=== PATIENT | female | born 1970 | race American Indian/Alaskan Native ===

== ENCOUNTER 2019-05-11 09:12 | Day surgery (SDC) | payer OTHER ==
[~2019-05-11 09:12] MED LIST: DIPRIVAN 10 MG/ML IV ONE; NACL 0.9% 1000 ML 1,000 ML IV SCH
--- NOTE | 2019-05-11 12:01 | Procedure Note ---
Date of procedure: 05/11/19 Pre-op diagnosis: H/O Colon Polyp/ F/H/O Colon Cancer (mother) Post-op diagnosis: other (No Colon Polyps at present/No diverticular Disease/Minor,Internal Hemorrhoid) Procedure: Colonoscopy Anesthesia: MAC Surgeon: SORIN JAVIER Estimated blood loss: none Pathology: none Condition: stable Disposition: same day (Resume home medication and follow up in 1 to 2 weeks ([phone]).)
--- NOTE | 2019-05-11 12:15 | Anesthesia Day of Surgery ---
Anesthesia Day of Surgery - Day of Surgery Patient Examined: Yes Patient H&P Reviewed: Yes Patient is NPO: Yes
--- NOTE | 2019-05-11 12:16 | Anesthesia Consultation ---
Anesthesia Consult and Med Hx - Airway Anesthetic Teeth Evaluation: Good ROM Head & Neck: Adequate Mental/Hyoid Distance: Adequate Mallampati Class: Class I Intubation Access Assessment: Good - Pulmonary Exam CTA: Yes - Cardiac Exam Cardiac Exam: RRR - Pre-Operative Health Status ASA Pre-Surgery Classification: ASA2 Proposed Anesthetic Plan: General, MAC - Cardiovascular System Hx Hypertension: Yes - Endocrine Hx Hypothyroidism: Yes - Other Systems Hx Cancer: Yes (HX COLON CANCER)
--- NOTE | 2019-05-11 12:16 | Post Anesthesia Evaluation ---
- Post Anesthesia Evaluation Patient Participated: Yes Airway Patent: Yes Stable Respiratory Function: Yes Nausea/Vomiting: No Temp > 96.8F: Yes Pain Manageable: Yes Adequeate Hydration: Yes Anesthesia Complications: No Block Receding Appropriately: Not Applicable Patient on Ventilator: No
[2019-05-11 12:33] VITALS: BP 112/64
--- NOTE | 2019-05-11 14:16 | Operative Report ---
PROCEDURE: Colonoscopy. INDICATION FOR PROCEDURE: This is a 49-year-old -[place] female with a strong family history of colon cancer, the patient's mother had colon cancer. The patient has a prior history of colon polyp, which was of the tubulovillous type. Repeat colonoscopy was done to make sure that there was not any recurrence of any polyps. DESCRIPTION OF PROCEDURE: The procedure was done after getting informed consent with MAC anesthesia. Initial rectal exam was unremarkable. Instrument was passed through the rectum onto the cecum, which was identified with ileocecal valve and the appendiceal orifice. Visualization was fair to good. The scope was removed to the hepatic flexure and reintroduced. No additional pathology was noted. Cecum, ascending colon, transverse colon, descending colon, and sigmoid showed normal mucosa. There was no evidence of any polyps, colitis or diverticular disease. Rectum showed some minor internal hemorrhoid on the retroverted view. There was no bleeding associated with the procedure. No complications associated with the procedure. ASSESSMENT: History of colon polyps, no colon polyps at present. Family history of colon cancer, the patient's mother had colon cancer. Minor internal hemorrhoids. No diverticular disease. There was no bleeding associated with the procedure. No complications associated with the procedure. Procedure was done in the GI lab with assistance of the GI lab team, which included RN, Maryann Apodaca as well as a Alex kendrick and also with the assistance of anesthesia. The patient will be asked to resume previous medication and follow up in the office in 1-2 weeks' time. JOB# [id number] JACKELINE/TERRA
== END 2019-05-11 09:13 | disposition home or self-care (01) ==
LOC: GIO 09:12
DX: Z12.11 Encounter for screening for malignant neoplasm of colon (principal); K64.8 Other hemorrhoids; E03.9 Hypothyroidism, unspecified; I10 Essential (primary) hypertension; Z86.010 Personal history of colon polyps; Z79.899 Other long term (current) drug therapy; Z80.0 Family history of malignant neoplasm of digestive organs; Z87.19 Personal history of other diseases of the digestive system; Z90.710 Acquired absence of both cervix and uterus
CPT/HCPCS: J2704; J7030